=== PATIENT | female | born 1990 | race African-American/Black ===

== ENCOUNTER 2017-03-23 14:37 | Emergency (ER) | payer SELFPAY | END 2017-03-23 15:18 | disposition home or self-care (01) | LOC: MADERS 14:37 | DX: S16.1XXA Strain of muscle, fascia and tendon at neck level, initial encounter (principal); S29.012A Strain of muscle and tendon of back wall of thorax, initial encounter; S39.012A Strain of muscle, fascia and tendon of lower back, initial encounter; V44.9XXA Unspecified car occupant injured in collision with heavy transport vehicle or bus in traffic accident, initial encounter; Y92.481 Parking lot as the place of occurrence of the external cause | CPT/HCPCS: 99283 ==

== ENCOUNTER 2017-04-10 10:35 | Emergency (ER) | payer SELFPAY ==
[2017-04-10] MEDS ORDERED: Benzonatate 100 MG CAP ONE (11:09)
[2017-04-10 11:19] LABS: Pregnancy Test - Urine (BHCG) Negative (Negative); Pregu Control Background? CLEAR/WHITE (CLR/WHITE); Pregu Control Bar Appear? YES (CONTROL BAR); Specific Gravity 1.013 (1.002-1.036)
[2017-04-10] MEDS ORDERED: Dexamethasone 4 MG TAB ONE (11:24)
[2017-04-10 11:32] LABS: Bacteria/HPF 2+ HPF (None Seen); Bilirubin Negative (Negative); Blood, Urine Small (Negative); Clarity Slightly Cloudy (Clear); Glucose, Urine (Dipstick) Negative (Negative); Leukocyte Trace (Negative); Nitrite Negative (Negative); Protein, Urine (Dipstick) Negative (Neg-Trace); WBC/HPF 0-3 HPF (0-3); pH, Urine 6.5 (5.0-9.0)
== END 2017-04-10 11:30 | disposition home or self-care (01) ==
LOC: MADERS 10:35
DX: J40 Bronchitis, not specified as acute or chronic (principal); J06.9 Acute upper respiratory infection, unspecified; F17.210 Nicotine dependence, cigarettes, uncomplicated
CPT/HCPCS: 81001; 81025; 99283; J8540